=== PATIENT | female | born 2000 | race Caucasian/White ===

== ENCOUNTER 2025-01-05 21:47 | Emergency (ER) | payer SELFPAY ==
[~2025-01-05] VITALS: Ht 167.6 cm; Wt 74.0 kg
[2025-01-05 21:49] VITALS: O2SAT 99
[2025-01-06] MEDS ORDERED: KETOROLAC 15MG/ML VIAL IM ONE
[2025-01-06] MEDS: KETOROLAC 15MG/ML VIAL IM NR (01:41)
[2025-01-06 02:09] VITALS: BP 124/63; PULSE 80; RESP 16; TEMP 37.1; O2SAT 99
[2025-01-06] MEDS ORDERED: HYDR-4001 MT (04:17)
== END 2025-01-06 04:27 | disposition home or self-care (01) ==
LOC: ER 21:47
DX: S02.2XXA Fracture of nasal bones, initial encounter for closed fracture (principal); S02.31XA Fracture of orbital floor, right side, initial encounter for closed fracture; E11.9 Type 2 diabetes mellitus without complications; F31.9 Bipolar disorder, unspecified; Y08.89XA Assault by other specified means, initial encounter; Y93.89 Activity, other specified; Y92.89 Other specified places as the place of occurrence of the external cause; Y99.8 Other external cause status
CPT/HCPCS: 99285; 70450; 81025; 70486; 96372; J1885